=== PATIENT | female | born 1995 | race Caucasian/White ===

== ENCOUNTER 2025-03-15 04:14 | Day surgery (SDC) | payer OTHER, SELFPAY ==
[2025-03-14 19:41] VITALS: BP 168/109
[2025-03-14 20:16] LABS: Urine Character Clear (Clear)
[2025-03-14 20:17] LABS: Hematocrit 33.4 % (37.0-47.0); Hemoglobin 11.4 g/dL (12.0-16.0); Mean Corp Hgb Conc. 34.1 g/dL (33.0-37.0); Mean Corpuscular Volume 95.2 fL (81.0-99.0); Nucleated Red Blood Cells % 0 %; Platelet Count 274 10^3/uL (130-400); Red Cell Dist. Width 11.9 % (11.5-14.5)
[2025-03-14 20:23] LABS: Urine Squamous Cell >30 /LPF (Few)
[2025-03-14 20:24] LABS: Urine Red Blood Cell 0-2 /HPF (0-2)
[2025-03-14 20:36] LABS: ALT (SGPT) 14 U/L (0-35); AST (SGOT) 17 U/L (14-36); Albumin 4.9 g/dl (3.5-5.0); Alkaline Phosphatase 47 U/L (38-126); Blood Urea Nitrogen 9 mg/dl (7-17); Calcium 9.4 mg/dl (8.4-10.2); Carbon Dioxide 24 mmol/L (22-30); Chloride 104 mmol/L (98-107); Glucose 101 mg/dl (70-99); Potassium 4.0 mmol/L (3.5-5.1); Sodium 134 mmol/L (135-145); Total Protein 7.7 g/dl (6.3-8.2); eGFR > 60.00
[2025-03-14 20:51] LABS: Beta HCG Quantitative 4200.50 mIU/ml
--- NOTE | 2025-03-14 23:23 | ED.GENMED ---
History of Present Illness
General
Chief Complaint: Abdominal Pain
Source: patient and spouse
Exam Limitations: none
Time Seen by Provider: 03/14/25 22:58
Nursing documentation reviewed up to this point in time: agreed with except (Patient with upper abdominal pain pain into her shoulder)
History of Present Illness
History of Present Illness:
30-year-old female G1, P0 LMP beginning of January, few weeks later had some spotting, a week or 2 ago had a home test which was positive she has been getting positive home test every day since then, scheduled to see [facility] in March past day or so developed abdominal pain sharp, into her right shoulder, no nausea or vomiting, no fevers no vaginal bleeding
Past History
Past History
ED Past Medical History: None
ED Past Surgical History: None
Social History
Tobacco: Non-smoker
Alcohol: Occasional
Drug: None
Personal:
Living: with family
Employment: Employed
Review of Systems
Review of Systems
All Other Systems: Not applicable
Constitutional: Denies fever or fatigue
EENT: Reports no symptoms
Respiratory: Reports no symptoms
Cardiac: Reports no symptoms
ABD/GI: Reports abdominal pain
: Denies bleeding
Musculoskeletal: Reports no symptoms
Skin: Reports no symptoms
Neurological: Reports no symptoms
Phy Exam
Physical Exam
Physical Exam:
Physical Exam
General: 30-year-old female looks uncomfortable but nontoxic
Neck: No jaundice
Heart: s1/s2 regular rate and rhythm, no murmur. equal radial pulses.
Lungs: no acute respiratory distress. clear bilaterally
Abdomen: Tender epigastrium and right upper quadrant
Neuro: alert and oriented. no focal neurological deficits
Skin: no rash
Psychiatric: well kept. interactive and cooperative
Extremities: no edema
Course
Orders/Labs/Results
Orders:
Orders
03/14/25 20:04
Type+Screen Urgent
Beta HCG Quantitative Urgent
Is this a screen?: No
CMP [Comprehensive Metabolic Panel] Urgent
Complete Blood Count/With Diff Urgent
Lipase Urgent
Comment: ADD ON
Urinalysis Reflex To Culture Urgent
Date Specimen was Collected: 03/14/25
Time Specimen was Collected: 19:46
Urine Microscopic Reflex Cult Urgent
Urine Culture Urgent
STACY Source: U
Specimen Description:
Date Specimen was Collected: 03/14/25
Time Specimen was Collected: 19:46
03/14/25 23:16
US W Transvaginal Urgent
Reason For Exam: tv severe pain thanks
03/14/25 23:17
US Abdomen Complete/Upper Urgent
Comment:
Reason For Exam: pain
03/14/25 23:18
Add On- LAB Urgent
Tests Added?: lipase
03/14/25 23:19
0.9% Sodium Chloride 1000 ml [Nss] 1,500 ml IV BOLUS
03/14/25 23:27
Morphine Sulfate 4 mg IV NOW STA
03/15/25 00:36
Consult RIVER GUIDE [RIVER GUIDE CONSULT] Urgent
Consulting Provider: Elizabeth Roe
Was physician already notified: Yes
PT/INR [Prothrombin Time] Stat
PTT Stat
Morphine Sulfate 4 mg IV NOW STA
Abnormal Lab Results
03/14/25
20:04
WBC 12.6 H 10^3/uL
(4.8-10.8)
RBC 3.51 L 10^6/uL
(4.20-5.40)
Hgb 11.4 L g/dL
(12.0-16.0)
Hct 33.4 L %
(37.0-47.0)
MCH 32.5 H pg
(27.0-31.0)
Absolute Neuts (auto) 8.9 H 10^3/uL
(1.4-6.5)
Absolute Monos (auto) 1.1 H 10^3/uL
(0.1-0.6)
Lymphocytes % 19.7 L %
(20.5-51.1)
Sodium 134 L mmol/L
(135-145)
Glucose 101 H mg/dl
(70-99)
Urine Bacteria (Reflex) Many A
(Negative)
Urine Albumin (Reflex) 1+ A
(Neg - Trace)
03/14/25 20:04
03/14/25 20:04
Vital Signs
Initial and Last Documented VS:
Initial Vital Signs
Temp Pulse Resp BP Pulse Ox
98.6 F 95 16 168/109 100
03/14/25 19:41 03/14/25 19:41 03/14/25 19:41 03/14/25 19:41 03/14/25 19:41
Last Documented Vital Signs
Temp Pulse Resp BP Pulse Ox
98.6 F 95 16 168/109 99
03/14/25 19:41 03/14/25 19:41 03/14/25 19:41 03/14/25 19:41 03/14/25 23:45
MDM/Problems Addressed
Differential Diagnosis Includes:
Ectopic ruptured ectopic biliary colic pancreatitis less likely appendicitis ovarian cyst or torsion
MDM/Problems Addressed:
Abdominal pain
Acute Exacerbation and/or Progression of Chronic Illness:
*Radiology
Radiology exam reviewed: radiology read reviewed
*Pulse Oximetry
SaO2: 100
Oxygen Mode of Delivery: Room air
Patient hypoxic: no
*Critical Care Note
Total Time (30-74mins, 75-104mins- exclusive of procedures): 34
Update Note
Update Note:
1230 ultrasound noted patient with worsening pain reviewed with radiology ruptured ectopic with hemoperitoneum, reviewed with gynecology Dr. Roe will see patient in the OR
ED Attending Note
-
Portions of this chart may have been created with voice recognition software.� Occasional wrong word or��sound alike� substitutions may have occurred due to the inherent limitations of voice recognition software.
Discharge Plan
Departure
Patient Disposition: Admit
Date of Disposition: 03/15/25
Time of Disposition: 00:39
Admit to: OR
Admit to doctor: joshua
Presentation/result/management discussed w/ accepting MD/DO: ob
Patient with high blood pressure during this ER visit?: No
Condition: Fair
Covid-19: Not Applicable
Discharge Problem:
Hemoperitoneum due to rupture of left tubal ectopic
Prescriptions:
No Action
No Current Medications
0
Referrals:
Stephany Bowers MD [Family Provider, Internal Medicine]
Interventions
Interventions:
*Risk Screen - Suicide Last Done: 03/14/25 19:41
*General Assessment Last Done: 03/14/25 23:45
*Neglect/Abuse Screening Last Done: 03/14/25 19:41
*ED- Fall Risk Assessment Last Done: 03/15/25 00:32
*ED COVID-19 Vaccine History Last Done: 03/15/25 00:32
*ED Influenza Vaccine History Last Done: 03/15/25 00:32
SI-Kykfnz-Wzzhgatpbn Assessment Last Done: 03/15/25 00:32
Discharge Date and Time
Print Language: SUDANESE
[2025-03-14] MEDS: NSS 1500 IV (23:37)
[2025-03-14] MEDS: MORPHINE SULFATE 4 MG IV (23:38)
[2025-03-14 23:55] LABS: Lipase 163 U/L (23-300)
[2025-03-15] VITALS (7 sets, daily range): BP systolic 125–151; BP diastolic 75–86; BMI 26.8
[2025-03-15] MEDS: MORPHINE SULFATE 4 MG IV (00:43)
[2025-03-15 01:21] LABS: APTT 27.8 Sec (23.4-35.0); INR 1.02; PT 13.9 Sec (11.4-14.6)
[2025-03-15 05:11] LABS: Hematocrit 28.5 % (37.0-47.0); Hemoglobin 9.8 g/dL (12.0-16.0)
[2025-03-15 05:31] LABS: Beta HCG Quantitative 2477.70 mIU/ml
== END 2025-03-15 05:00 | disposition home or self-care (01) ==
LOC: PACU 04:14
PROVIDERS: Emergency Medicine; ATTENDING PHYSICIAN Student in an Organized Health Care Education/Training Program; CONSULT PHYSICIAN Obstetrics & Gynecology; EMERGENCY PHYSICIAN Emergency Medicine; FAMILY PHYSICIAN Internal Medicine
DX: O00.102 Left tubal pregnancy without intrauterine pregnancy (principal); K66.1 Hemoperitoneum; Z3A.00 Weeks of gestation of pregnancy not specified
CPT/HCPCS: 49322; 76700; 76801; 76817; 80053; 81003; 81015; 83690; 84702; 85014; 85018; 85025; 85610; 85730; 86850; 86900; 86901; 87086; 88305; 96374; 99291